=== PATIENT | female | born 1960 | race Caucasian/White ===

== ENCOUNTER 2017-07-25 11:07 | Inpatient (IN) | payer OTHER ==
[~2017-07-25] VITALS: Ht 165.1 cm; Wt 86.2 kg
[~2017-07-25 11:07] MED LIST: ALTACE10 MG PO; AMARIL; CRESTOR10 MG PO; DIOVAN HCT 320/1 TA2 PO; GLUCOPHAGE XR500 MG PO; MICARDIS80 MG; NABUMETONE500 MG PO; PERCOCET 5/3251 TAB PO; TOPROL XL200 MG PO
== END 2017-07-29 10:13 | disposition designated cancer center or children's hospital (05) | DRG 311 ==
LOC: ER 11:07 → MEDJ 17:59 → MEDI 17:59 → MEDJ 07-29 10:13
PROC: 4A12X4Z Monitoring of Cardiac Electrical Activity, External Approach (ICD-10-PCS; principal; 2017-07-25)
PROC: 4A12XM4 Monitoring of Cardiac Stress, External Approach (ICD-10-PCS; 2017-07-26)
PROC: 3E033HZ Introduction of Radioactive Substance into Peripheral Vein, Percutaneous Approach (ICD-10-PCS; 2017-07-26)
PROC: B246ZZZ Ultrasonography of Right and Left Heart (ICD-10-PCS; 2017-07-26)
PROC: B020ZZZ Computerized Tomography (CT Scan) of Brain (ICD-10-PCS; 2017-07-27)
DX: I24.9 Acute ischemic heart disease, unspecified (principal); N17.8 Other acute kidney failure; I25.118 Atherosclerotic heart disease of native coronary artery with other forms of angina pectoris; I10 Essential (primary) hypertension; E78.00 Pure hypercholesterolemia, unspecified; E11.65 Type 2 diabetes mellitus with hyperglycemia